=== PATIENT | female | born 1960 | race Caucasian/White ===

== ENCOUNTER 2017-07-05 02:42 | Emergency (ER) | payer MEDICAID ==
[~2017-07-05] VITALS: Ht 167.6 cm; Wt 62.1 kg
[2017-07-05 02:57] VITALS: BP 150/99
[2017-07-05] MEDS ORDERED: IBUPROFEN 600 MG TAB PO ONE (05:00)
== END 2017-07-05 05:10 | disposition home or self-care (01) ==
LOC: ER 02:45
DX: S30.0XXA Contusion of lower back and pelvis, initial encounter (principal); S50.02XA Contusion of left elbow, initial encounter; Z88.6 Allergy status to analgesic agent; W10.8XXA Fall (on) (from) other stairs and steps, initial encounter; Y93.89 Activity, other specified; Y92.89 Other specified places as the place of occurrence of the external cause; Y99.8 Other external cause status
CPT/HCPCS: 72110; 73080

== ENCOUNTER 2017-10-31 22:36 | Inpatient (IN) | payer MEDICAID ==
[~2017-10-31] VITALS: Ht 165.1 cm; Wt 58.6 kg
[2017-10-31 23:21] LABS: Urine Bacteria NONE SEEN /hpf (None Seen); Urine Blood Negative /uL (Negative); Urine Mucus FEW (None Seen); Urine Specific Gravity 1.027 (1.001-1.035); Urine WBC 26 /hpf (0 - 5)
[2017-10-31 23:38] LABS: Basophils # (auto) 0 uL; Monocytes # (auto) 0.5 uL; Neutrophils # (auto) 3.5 uL; Nucleated Red Blood Cells % 0.1 %
[2017-10-31 23:40] LABS: Basophils % (auto) 0.4 % (0.0-2.0); Eosinophils # (auto) 0.3 uL; Eosinophils % (auto) 3.3 % (0.0-7.0); Hemoglobin 12.1 g/dL (12.2-16.2); Lymphocytes # (auto) 3.6 uL; Lymphocytes % (auto) 45.6 % (10.0-50.0); Mean Corpuscular Hemoglobin 25.4 pg (28.0-32.0); Mean Corpuscular Hgb Conc. 31.9 g/dL (32.0-36.0); Mean Corpuscular Volume 79.7 fL (80.0-100.0); Monocytes % (auto) 6.5 % (0.0-12.0); Neutrophils % (auto) 44.2 % (37.0-80.0); Platelet Count (auto) 314 10^3/uL (140-450); Red Blood Cells 4.78 10^6/uL (4.0-5.20); Red Cell Distribution Width 14.2 % (11.8-14.3); White Blood Cell 7.9 10^3/uL (4.4-10.8)
[2017-10-31 23:58] LABS: Albumin 3.6 g/dL (3.4-5.0); BUN/Creatinine Ratio 20.2; Calcium 8.3 mg/dL (8.5-10.1); Potassium 3.8 mmol/L (3.5-5.1)
[2017-11-01 00:01] LABS: Bilirubin, Total 0.2 mg/dL (0.2-1.0)
[2017-11-01] MEDS ORDERED: ONDANSETRON HCL 4 MG/2 ML VIAL IV ONE (04:30)
[2017-11-01] MEDS ORDERED: ONDANSETRON HCL 4 MG/2 ML VIAL ONE (04:30)
[2017-11-01] MEDS ORDERED: cefTRIAXone 1GM/10ml IVPUSH 10 ML IV ONE (04:45)
[2017-11-01] MEDS ORDERED: SODIUM CHLORIDE 0.9% 1,000 ML IV ONE (05:30)
[2017-11-01] MEDS ORDERED: cloNIDine HCL 0.1 MG TAB PO PRN (08:45)
[2017-11-01] MEDS ORDERED: metroNIDAZOLE 500 MG TAB PO ONE (08:45)
[2017-11-01] MEDS ORDERED: MORPHINE SULFATE 4 MG/ML SYR/VIAL IV PRN (09:00)
[2017-11-01] MEDS ORDERED: HYDROcodone-ACET 5/325MG TAB PO PRN (09:00)
[2017-11-01] MEDS ORDERED: TEMAZEPAM 15 MG CAP PO PRN (09:00)
[2017-11-01] MEDS ORDERED: DEXTROSE (50%) 50ML SYRG IV PRN (09:00)
[2017-11-01] MEDS: METOPROLOL SUCCINATE XL 50 MG TAB PO SCH (09:28)
[2017-11-01] MEDS: PANTOPRAZOLE 40 MG TAB PO SCH (09:28)
[2017-11-01] MEDS: FAMOTIDINE 20 MG TAB PO SCH (09:28)
[2017-11-01] MEDS: SODIUM CHLORIDE 0.9% 1,000 ML IV SCH (09:28)
[2017-11-01] MEDS: MULTIPLE VITAMIN TAB PO SCH (09:28)
[2017-11-01] MEDS: PARoxetine 20 MG TAB PO SCH (09:28)
[2017-11-01] MEDS: ACETAMINOPHEN 325 MG TAB PO PRN ×2 (09:48→20:12)
[2017-11-01] MEDS: InsuLIN REG 1unit/0.01ml Soln (100units/ml) SC SCH ×3 (11:30→21:01)
[2017-11-01] MEDS: ACCU-CHEK COMFORT CURVE STRIP VI SCH ×3 (12:00→21:01)
[2017-11-01 12:14] VITALS: BP 124/79
[2017-11-01] MEDS: metroNIDAZOLE 500 MG TAB PO SCH ×2 (15:18→20:59)
[2017-11-01 17:21] VITALS: BP 127/75
[2017-11-01] MEDS ORDERED: PAR20T PO (21:09)
[2017-11-01] MEDS ORDERED: LISI10TA6 PO (21:09)
[2017-11-01] MEDS ORDERED: METF-370 PO (21:09)
[2017-11-01] MEDS ORDERED: METO25TA5 PO (21:09)
[2017-11-01] MEDS ORDERED: OME20T PO (21:09)
[2017-11-02 05:00] VITALS: BP 126/79
[2017-11-02] MEDS: InsuLIN REG 1unit/0.01ml Soln (100units/ml) SC SCH ×4 (06:00→21:37)
[2017-11-02] MEDS: metroNIDAZOLE 500 MG TAB PO SCH ×3 (06:00→21:37)
[2017-11-02] MEDS: ACCU-CHEK COMFORT CURVE STRIP VI SCH ×4 (06:00→21:37)
[2017-11-02 07:01] LABS: Hemoglobin 12.5 g/dL (12.2-16.2)
[2017-11-02 07:04] LABS: Mean Corpuscular Hemoglobin 25.6 pg (28.0-32.0); Mean Corpuscular Hgb Conc. 32.1 g/dL (32.0-36.0); Mean Corpuscular Volume 79.8 fL (80.0-100.0); Platelet Count (auto) 279 10^3/uL (140-450); Red Blood Cells 4.89 10^6/uL (4.0-5.20); Red Cell Distribution Width 14.3 % (11.8-14.3); White Blood Cell 5.3 10^3/uL (4.4-10.8)
[2017-11-02 07:07] LABS: Band Neutrophils % (manual) 0; Basophils % (manual) 0 (0.0-2.0); Blast Cells 0; Metamyelocytes % 0; Myelocytes % 0; Promyelocytes % 0; Reactive Lymphocytes 0
[2017-11-02 07:29] LABS: Albumin 3.3 g/dL (3.4-5.0); BUN/Creatinine Ratio 12.6; Bilirubin, Total 0.3 mg/dL (0.2-1.0); Calcium 8.1 mg/dL (8.5-10.1); Potassium 4.7 mmol/L (3.5-5.1); Total Protein 6.5 g/dL (6.4-8.2)
[2017-11-02] MEDS: SODIUM CHLORIDE 0.9% 1,000 ML IV SCH ×2 (07:59→18:08)
[2017-11-02 08:38] LABS: Eosinophils % (manual) 25 (0-7); Lymphocytes % (manual) 35 (10.0-50.0); Monocytes % (manual) 4 (0-12)
[2017-11-02 08:59] VITALS: BP 109/61
[2017-11-02] MEDS: MULTIPLE VITAMIN TAB PO SCH (10:19)
[2017-11-02] MEDS: cefTRIAXone 1GM/10ml IVPUSH 10 ML IV SCH (10:19)
[2017-11-02] MEDS: FAMOTIDINE 20 MG TAB PO SCH (10:20)
[2017-11-02] MEDS: METOPROLOL SUCCINATE XL 50 MG TAB PO SCH (10:20)
[2017-11-02] MEDS: PARoxetine 20 MG TAB PO SCH (10:20)
[2017-11-02] MEDS: PANTOPRAZOLE 40 MG TAB PO SCH (10:20)
[2017-11-02] MEDS ORDERED: GOLYTELY 4L KIT PO ONE (12:00)
[2017-11-02 13:00] VITALS: BP 123/76
[2017-11-02 17:02] VITALS: BP 120/64
[2017-11-02] MEDS: Boost Glucose Control 8 Ounces PO SCH (18:00)
[2017-11-02] MEDS: ONDANSETRON HCL 4 MG/2 ML VIAL IV PRN (21:37)
[2017-11-02] MEDS: ACETAMINOPHEN 325 MG TAB PO PRN (21:38)
[2017-11-02 22:00] VITALS: BP 155/88
[2017-11-03] MEDS: ONDANSETRON HCL 4 MG/2 ML VIAL IV PRN (03:53)
[2017-11-03] MEDS ORDERED: GOLYTELY 4L KIT PO ONE (04:00)
[2017-11-03 05:00] VITALS: BP 158/90
[2017-11-03] MEDS: metroNIDAZOLE 500 MG TAB PO SCH ×3 (05:24→21:05)
[2017-11-03] MEDS: InsuLIN REG 1unit/0.01ml Soln (100units/ml) SC SCH ×4 (05:29→21:03)
[2017-11-03] MEDS: ACCU-CHEK COMFORT CURVE STRIP VI SCH ×4 (05:29→21:03)
[2017-11-03 06:36] LABS: Basophils # (auto) 0 uL; Basophils % (auto) 0.5 % (0.0-2.0); Eosinophils # (auto) 0.2 uL; White Blood Cell 6.8 10^3/uL (4.4-10.8)
[2017-11-03 06:39] LABS: Eosinophils % (auto) 2.7 % (0.0-7.0); Hematocrit 40.1 % (36.0-46.0); Hemoglobin 12.6 g/dL (12.2-16.2); Lymphocytes # (auto) 2.3 uL; Lymphocytes % (auto) 34.1 % (10.0-50.0); Mean Corpuscular Hgb Conc. 31.5 g/dL (32.0-36.0); Mean Corpuscular Volume 79.4 fL (80.0-100.0); Monocytes # (auto) 0.5 uL; Monocytes % (auto) 6.7 % (0.0-12.0); Neutrophils # (auto) 3.8 uL; Nucleated Red Blood Cells % 0.2 %; Platelet Count (auto) 307 10^3/uL (140-450); Red Blood Cells 5.06 10^6/uL (4.0-5.20)
[2017-11-03 06:53] LABS: BUN/Creatinine Ratio 8.2
[2017-11-03] MEDS: Boost Glucose Control 8 Ounces PO SCH ×3 (08:00→18:24)
[2017-11-03] MEDS ORDERED: diphenhdrAMINE HCL 50 MG/1 ML VL ONE (08:18)
[2017-11-03] MEDS ORDERED: FLUMAZENIL 0.1 MG/ML INJ 10ML MDV IV ONE (08:18)
[2017-11-03] MEDS ORDERED: NALOXONE HCL 0.4 MG/ML VIAL ONE (08:18)
[2017-11-03] MEDS ORDERED: LIDOCAINE VISCOUS 2% 15ML UD ONE (08:18)
[2017-11-03 08:26] VITALS: BP 133/83
[2017-11-03] MEDS: cefTRIAXone 1GM/10ml IVPUSH 10 ML IV SCH (09:01)
[2017-11-03 09:27] LABS: Partial Thromboplastin Time 25.8 sec (22.64-33.71); Prothrombin Time 10.9 sec (9.37-12.3)
[2017-11-03] MEDS: MULTIPLE VITAMIN TAB PO SCH ×2 (09:57→18:24)
[2017-11-03] MEDS: PARoxetine 20 MG TAB PO SCH ×2 (09:58→18:24)
[2017-11-03] MEDS: PANTOPRAZOLE 40 MG TAB PO SCH ×2 (09:58→18:24)
[2017-11-03] MEDS: METOPROLOL SUCCINATE XL 50 MG TAB PO SCH ×2 (09:58→18:24)
[2017-11-03] MEDS: fentaNYL CITRATE 100 MCG/2 ML VL ONE ×3 (10:07→10:18)
[2017-11-03] MEDS: MIDAZOLAM HCL 5 MG/ML-1ML VIAL ONE ×3 (10:07→10:18)
[2017-11-03] MEDS: SODIUM CHLORIDE 0.9% 1,000 ML IV SCH (11:07)
[2017-11-03 13:00] VITALS: BP 148/84
[2017-11-03] MEDS ORDERED: LEVOFLOXACIN 500MG 100 ML IV ONE (15:15)
[2017-11-03] MEDS: ACETAMINOPHEN 325 MG TAB PO PRN (16:57)
[2017-11-03 17:31] VITALS: BP 144/75
[2017-11-03 22:00] VITALS: BP 128/65
[2017-11-04] MEDS: SODIUM CHLORIDE 0.9% 1,000 ML IV SCH (03:28)
[2017-11-04] MEDS: metroNIDAZOLE 500 MG TAB PO SCH (05:26)
[2017-11-04] MEDS: ACCU-CHEK COMFORT CURVE STRIP VI SCH (05:27)
[2017-11-04 05:42] VITALS: BP 141/87
[2017-11-04] MEDS: InsuLIN REG 1unit/0.01ml Soln (100units/ml) SC SCH (05:50)
[2017-11-04 09:00] VITALS: BP 146/92
[2017-11-04] MEDS: Boost Glucose Control 8 Ounces PO SCH (09:17)
[2017-11-04] MEDS ORDERED: LEVOFLOXACIN 500MG 100 ML IV SCH (10:00)
[2017-11-04] MEDS ORDERED: NITR-39 PO (10:47)
[2017-11-04] MEDS ORDERED: PANT40TA2 PO (10:47)
[2017-11-04 11:18] VITALS: BP 144/75
== END 2017-11-04 13:00 | disposition home or self-care (01) | DRG 241 ==
LOC: ER 22:39 → OVERFLOW 22:40 → CENTRAL 11-01 11:50
PROVIDERS: ADMIT Internal Medicine; ATTEND Internal Medicine
PROC: 0DB68ZX Excision of Stomach, Via Natural or Artificial Opening Endoscopic, Diagnostic (ICD-10-PCS; 2017-11-03)
PROC: 0DBE8ZX Excision of Large Intestine, Via Natural or Artificial Opening Endoscopic, Diagnostic (ICD-10-PCS; 2017-11-03)
PROC: 0DB98ZX Excision of Duodenum, Via Natural or Artificial Opening Endoscopic, Diagnostic (ICD-10-PCS; principal; 2017-11-03 10:04)
PROC: 0DB78ZX Excision of Stomach, Pylorus, Via Natural or Artificial Opening Endoscopic, Diagnostic (ICD-10-PCS; 2017-11-03 10:04)
DX: K29.70 Gastritis, unspecified, without bleeding (principal); N17.0 Acute kidney failure with tubular necrosis; K85.90 Acute pancreatitis without necrosis or infection, unspecified; E11.21 Type 2 diabetes mellitus with diabetic nephropathy; N18.3 Chronic kidney disease, stage 3 (moderate); E44.1 Mild protein-calorie malnutrition; N39.0 Urinary tract infection, site not specified; D50.9 Iron deficiency anemia, unspecified; D63.8 Anemia in other chronic diseases classified elsewhere; E11.22 Type 2 diabetes mellitus with diabetic chronic kidney disease; E83.51 Hypocalcemia; E86.0 Dehydration; F32.9 Major depressive disorder, single episode, unspecified; I12.9 Hypertensive chronic kidney disease with stage 1 through stage 4 chronic kidney disease, or unspecified chronic kidney disease; R74.8 Abnormal levels of other serum enzymes; K29.80 Duodenitis without bleeding; I70.8 Atherosclerosis of other arteries; B96.20 Unspecified Escherichia coli [E. coli] as the cause of diseases classified elsewhere; K31.7 Polyp of stomach and duodenum; K64.8 Other hemorrhoids; Z16.12 Extended spectrum beta lactamase (ESBL) resistance; Z90.710 Acquired absence of both cervix and uterus; Z68.21 Body mass index [BMI] 21.0-21.9, adult; Z88.6 Allergy status to analgesic agent; Z79.899 Other long term (current) drug therapy
CPT/HCPCS: 36415; 43239; 45380; 74176; 80048; 80053; 81001; 81025; 82150; 82270; 82705; 82784; 82962; 83036; 83516; 83540; 83690; 84443; 85007; 85025; 85027; 85610; 85730; 86255; 87045; 87086; 87088; 87177; 87186; 87493; 87899; 96374; 96375; J1815; J1956; J2250; J2405

== ENCOUNTER 2023-06-13 16:27 | Emergency (ER) | payer MEDICAID ==
[~2023-06-13] VITALS: Ht 165.1 cm; Wt 56.4 kg
[~2023-06-13 16:27] MED LIST: DICY20TA PO; GABA-1308 PO; HYDR-4833 PO; LISI20TA56 PO; METF-370 PO; METO25TA93 PO; PANT40TA2 PO; PAR20T PO; PROBCAP5 PO
[2023-06-13 16:43] VITALS: BP 125/62; PULSE 82; RESP 18; O2SAT 97
== END 2023-06-13 20:51 | disposition left against medical advice (07) ==
LOC: ER 16:27
DX: M25.571 Pain in right ankle and joints of right foot (principal); Z53.21 Procedure and treatment not carried out due to patient leaving prior to being seen by health care provider
CPT/HCPCS: 73610

== ENCOUNTER 2024-07-01 18:46 | Inpatient (IN) | payer MEDICAID ==
[~2024-07-01] VITALS: Ht 165.1 cm; Wt 55.1 kg
--- NOTE | 2024-07-01 19:10 | ED.PDOC ---
History of Present Illness HPI Comments 64-year-old female history of IBS, diabetes, hypertension and diverticular disease brought in by self complaining of abdominal pain, nausea, vomiting, diarrhea and bright red blood in her stool, onset 4 days ago. Patient states pain is greatest in the left lower quadrant, but also is in the right mid abdominal area and left upper quadrant. She denies any fever, dysuria or sick contacts. Time Seen by MD: 18:55 Primary Care Provider: SHERI Buck Notes: Nurses Notes, Medications, Allergies Allergies: Coded Allergies: Tramadol (Verified Allergy, Severe, RASH, 09/09/15) Levofloxacin (Verified Allergy, Intermediate, hives, 11/03/17) Home Meds Reported Medications Probiotic Product (Restora) Cap, 1 CAP PO DAILY, CAP 12/04/18 Lisinopril (Lisinopril) 20 Mg Tab, 10 MG PO BID, TAB 12/04/18 Dicyclomine Hcl (Dicyclomine Hcl) 20 Mg Tab, 10 MG PO BID, TAB 12/04/18 Pantoprazole Sodium Sesquihydr (Protonix) 40 Mg Tab, 40 MG PO DAILY, #30 TAB 12/04/18 Metoprolol Succinate (Metoprolol Succinate Er) 25 Mg Tab, 1 TAB PO DAILY, #30 TAB 5 Refills 12/04/18 Paroxetine (PAXIL TABLET) 20 Mg Tb, 1 TAB PO DAILY, #30 TAB 5 Refills 12/04/18 Metformin Hydrochloride (Metformin Hcl) 500 Mg Tab, 500 MG PO DAILY, TAB 12/04/18 Gabapentin (Gabapentin) 100 Mg Cap, 1 CAP PO TID, #90 CAP 2 Refills 12/04/18 Hydrocodone-Acetaminophen (Modena 5/325MG) 1 Tab Tb, 1 TAB PO BID PRN for pain, #60 TAB 12/04/18 Information Source: Patient Mode of Arrival: Ambulatory Severity: Moderate Timing: Days Duration: Since onset, Days Prehospital treatment: None Past Medical History PAST MEDICAL HISTORY: DM, HTN Past Medical History (Other): Irretible bowel syndrome, Diverticulitis Surgical History: Hysterectomy Surgical History (Other): Ectopic Sx X2, Bladder repair [employer] History: Endometriosis Family History Family History: Reviewed,noncontributory to illness, Unknown Social History Smoker: Non-Smoker Alcohol: Denies ETOH Use Drugs: Denies Drug Use Lives In: Home Constitutional: denies: chills, diaphoresis, fatigue, fever, malaise, sweats, weakness, others EENTM: denies: blurred vision, double vision, ear bleeding, ear discharge, ear drainage, ear pain, ear ringing, eye pain, eye redness, hearing loss, mouth pain, mouth swelling, nasal discharge, nose bleeding, nose congestion, nose courtney n, photophobia, tearing, throat pain, throat swelling, voice changes, others Respiratory: denies: cough, hemoptysis, orthopnea, SOB at rest, shortness of breath, SOB with excertion, stridor, wheezing, others Cardiovascular: denies: chest pain, dizzy spells, diaphoresis, Dyspnea on exertion, edema, irregular heart beat, left arm pain, lightheadedness, palpitations, PND, syncope, others Gastrointestinal: reports: abdominal pain, diarrhea, nausea, vomiting; denies: abdomen distended, blood streaked bowels, constipated, dysphagia, difficulty swallowing, hematemesis, melena, poor appetite, poor fluid intake, rectal bleeding, rectal pain, others Genitourinary: denies: abnormal vagina bleeding, burning, dyspareunia, dysuria, flank pain, frequency, hematuria, incontinence, pain, , vagina discharge, urgency, others Neurological: reports: dizziness, headache; denies: fainting, left sided numbness, left sided weakness, numbness, paresthesia, pre-existing deficit, right sided numbness, right sided weakness, seizure, speech problems, tingling, tremors, weakness, others Musculoskeletal: denies: back pain, gout, joint pain, joint swelling, muscle pain, muscle stiffness, neck pain, others Integumetry: denies: bruises, change in color, change in hair/nails, dryness, laceration, lesions, lumps, rash, wounds, others Allergic/Immunocompromised: denies: Difficulty Healing, Frequent Infections, Hives, Itching, others Hematologic/Lymphatic: denies: anemia, blood clots, easy bleeding, easy bruising, swollen glands, others Endocrine: denies: excessive hunger, excessive sweating, excessive thirst, excessive urination, flushing, intolerance to cold, intolerance to heat, unexplained weight gain, unexplained weight loss, others Psychiatric: denies: anxiety, bipolar disorder, depression, hopeless, panic disorder, schizophrenia, sleepless, suicidal, others All Other Systems: Reviewed and Negative Physical Exam General Appearance: No Apparent Distress, Normal HEENT: Normal ENT Inspection Neck: Full Range of Motion, Normal Inspection Respiratory: Lungs Clear, No Accessory Muscle Use, No Respiratory Distress, Normal Breath Sounds Cardiovascular: No Edema, No JVD, Regular Rate/Rhythm Breast Exam: Deferred Gastrointestinal: LLQ, LUQ, RUQ, Soft, Tenderness Genitalia: Deferred Pelvic: Deferred Rectal: Deferred Extremities: Normal inspection, Normal range of motion, Non-tender, No pedal edema Neurologic: Alert, No Motor Deficits, Normal Affect, Normal Mood, No Sensory Deficits Cerebellar Function: NOT DONE Reflexes: NOT DONE Skin: Dry, Normal Color, Warm Lymphatic: NOT DONE Was a procedure done? Was a procedure done?: No Differential Dx Considerations may include: Exacerbation of IBS, diverticulitis, colitis, UTI, enteritis, electrolyte imbala nce, hypovolemia, among others X-Ray, Labs, Meds, VS Vital Signs Date Time Temp Pulse Resp B/P (MAP) Pulse Ox O2 Delivery O2 Flow Rate FiO2 07/01/24 19:26 98.1 87 16 116/74 (88) 94 Lab Test 07/01/24 20:01 07/01/24 19:09 Range/Units White Blood Count 6.3 4.4-10.8 10^3/uL Red Blood Count 5.12 4.0-5.20 10^6/uL Hemoglobin 13.5 12.2-16.2 g/dL Hematocrit 41.5 36.0-46.0 % Mean Corpuscular Volume 81.1 80.0-100.0 fL Mean Corpuscular Hemoglobin 26.3 L 28.0-32.0 pg Mean Corpuscular Hemoglobin Concent 32.4 32.0-36.0 g/dL Red Cell Distribution Width 14.8 H 11.8-14.3 % Platelet Count 307 140-450 10^3/uL Mean Platelet Volume 7.2 6.9-10.8 fL Neutrophils (%) (Auto) 47.5 37.0-80.0 % Lymphocytes (%) (Auto) 40.3 10.0-50.0 % Monocytes (%) (Auto) 7.6 0.0-12.0 % Eosinophils (%) (Auto) 3.9 0.0-7.0 % Basophils (%) (Auto) 0.7 0.0-2.0 % Neutrophils # (Auto) 3.0 1.6-8.6 10 ^3/uL Lymphocytes # (Auto) 2.5 0.4-5.4 10 ^3/uL Monocytes # (Auto) 0.5 0-1.3 10 ^3/uL Eosinophils # (Auto) 0.2 0-0.8 10 ^3/uL Basophils # (Auto) 0 0-0.2 10 ^3/uL Nucleated Red Blood Cells 0.0 % Sodium Level 141 136-145 mmol/L Potassium Level 3.8 3.5-5.1 mmol/L Chloride Level 103 98-107 mmol/L Carbon Dioxide Level 29 20-31 mmol/L Anion Gap 9 5-15 Blood Urea Nitrogen 21 9-23 mg/dL Creatinine 1.26 H 0.550-1.02 mg/dL Glomerular Filtration Rate Calc 48 >90 mL/min BUN/Creatinine Ratio 16.7 10.0-20.0 Serum Glucose 110 H 74-106 mg/dL Lactic Acid Level 1.6 0.4-2.0 mmol/L Calcium Level 10.3 8.7-10.4 mg/dL Total Bilirubin 0.4 0.2-1.0 mg/dL Aspartate Amino Transferase (AST) 14 13-40 U/L Alanine Aminotransferase (ALT) 15 7-40 U/L Alkaline Phosphatase 71 46-116 U/L Troponin I High Sensitivity < 3 L </=34 ng/L Total Protein 7.1 5.7-8.2 g/dL Albumin 4.4 3.2-4.8 g/dL Urine Color Light-yellow Yellow Urine Clarity Clear Clear Urine pH 5.5 5.0-9.0 Urine Specific [place] 1.029 1.001-1.035 Urine Protein Negative Negative Urine Ketones Negative Negative Urine Blood Negative Negative /uL Urine Nitrite Negative Negative Urine Bilirubin Negative Negative Urine Urobilinogen 2 H Negative mg/dL Urine Leukocyte Esterase 3+ Negative /uL Urine RBC 7 0 - 4 /hpf Urine WBC 64 0 - 5 /hpf Urine Squamous Epithelial Cells Few <5 /hpf Urine Bacteria Few H None Seen /hpf Urine Glucose Normal Normal mg/dL PROCEDURE(s): ABPL - CT AB PEL WO CON-NO ORAL OR IV REASON: n/v/d, rectal bleeding, abd kaminski ORDER NUMBER(s): [id number], ACCESSION NUMBER(s): [id number] Exam: CT CT AB PEL WO CON-NO ORAL OR IV History: n/v/d, rectal bleeding, abd kaminski Comparison Study: None available at time of dictation. TECHNIQUE: Multidetector CT of the abdomen was performed from lung bases to pubic symphysis. Imaging was performed without IV contrast. Axial, coronal and sagittal multiplanar reformats were obtained from the axial data set by the technologist. Radiation Dose Information: CT Dose: CTDI volume is 5.09 mGy. Dose-length product is 254.99 mGy*cm FINDINGS: Evaluation of solid organs is limited due to lack of intravenous contrast use. Findings: Lung Bases: No acute or significant lung base finding. Normal heart size. No pleural or pericardial effusion. Liver: The liver is normal in size. No focal lesions. Gallbladder and Biliary Tree: Unremarkable Spleen: Unremarkable Pancreas: The pancreas is grossly normal in appearance. Adrenal Glands: Unremarkable Kidneys: Kidneys are grossly normal without calculi or hydronephrosis. Bladder: Grossly unremarkable for degree of distention. Bowel: The stomach is grossly normal in appearance. Small bowel and colon are normal in caliber and distribution. The appendix is not visualized; however, no secondary findings of acute appendicitis identified. Ascites: Absent Lymphadenopathy: No mesenteric, retroperitoneal or periportal lymphadenopathy. Abdominal Wall and Mesentery: Unremarkable. Vasculature: The visualized abdominal aorta is normal in size and caliber. Evaluation of abdominal and pelvic vessels is limited due to lack of intravenous contrast. Pelvic Organs: Unremarkable Musculoskeletal: No aggressive focal bony lesions, acute fractures or dislocation. Soft tissues: Unremarkable IMPRESSION: 1. No acute abdominal or pelvic finding. Radiation optimization: All CT scans at this facility use at least one of these dose optimization techniques: automated exposure control mA and/or kV adjustment per patient size (includes targeted exams where dose is matched to clinical indication) or iterative reconstruction. X-Ray, Labs, Meds, VS Comment 64-year-old female with a history of IBS, hypertension, diabetes and diverticular disease complaining of abdominal pain, nausea, vomiting, diarrhea and bright red blood in her stools. Vitals remarkable for oxygen saturation 94% on room air Exam remarkable for left lower quadrant, left upper quadrant and right upper quadrant tenderness to palpation CT abdomen and pelvis unremarkable CBC unremarkable, CMP remarkable for creatinine 1.26, lactate normal, troponin negative UA abnormal consistent with UTI Patient treated with the following in the ED: 1 L 0.9 normal saline IV bolus, morphine 2 mg IV, Zofran 4 mg IV, Protonix 40 mg IV, Rocephin 1 g IV On re-evaluation, patient states pain has improved. Vitals were stable, and patient denies acute bleeding. Plan is to admit the patient for IV antibiotics and GI evaluation. Time of 1ST Reevaluation: 19:25 Reevaluation 1ST: Unchanged Patient Education/Counseling: Diagnosis, Treatment, Prognosis Family Education/Counseling: No Family Present Additional Information - I reviewed the following notes from patient's past medical encounters: 12/04/18 12/07/18 - The following tests were ordered, and results were reviewed by me: Labs, CT, PHA - I reviewed and agreed with the following test results read by other provider: CT - I discussed treatments and results with medical personnel and: (consultants, family) Departure 1 Departure Time of Disposition: 22:16 Impression: Primary Impression: UTI (urinary tract infection) Qualified Codes: N39.0 - Urinary tract infection, site not specified Additional Impressions: IBS (irritable bowel syndrome) Qualified Codes: K58.0 - Irritable bowel syndrome with diarrhea Hematochezia Nausea vomiting and diarrhea Disposition: ADMITTED INPATIENT Admit to: Med Surg Condition: Fair Critical Care Note Critical Care Time?: No Stability Stability form required: No Heart Score Heart Score: Heart Score Response (Comments) Value History N/A 0 EKG N/A 0 Age N/A 0 Risk Factors N/A 0 Troponin N/A 0 Total 0 I personally scribed for SABRINA BENITEZ MD ([email or web address]) on 07/01/24 at 19:10. Electronically submitted by Stanislav Stover ([email or web address]). SABRINA BENITEZ MD Jul 01, 2024 19:10
[2024-07-01 19:44] LABS: Urine Bacteria FEW /hpf (None Seen); Urine Blood Negative /uL (Negative); Urine Clarity Clear (Clear); Urine Color Light-Yellow (Yellow); Urine Protein, UAD Negative (Negative); Urine Specific Gravity 1.029 (1.001-1.035); Urine Urobilinogen 2 mg/dL (Negative); Urine WBC 64 /hpf (0 - 5); Urine pH 5.5 (5.0-9.0)
--- NOTE | 2024-07-01 19:44 | DVH ---
Exam: CT CT AB PEL WO CON-NO ORAL OR IV History: n/v/d, rectal bleeding, abd kaminski Comparison Study: None available at time of dictation. TECHNIQUE: Multidetector CT of the abdomen was performed from lung bases to pubic symphysis. Imaging was performed without IV contrast. Axial, coronal and sagittal multiplanar reformats were obtained fr om the axial data set by the technologist. Radiation Dose Information: CT Dose: CTDI volume is 5.09 mGy. Dose-length product is 254.99 mGy*cm FINDINGS: Evaluation of solid organs is limited due to lack of intravenous contrast use. Findings: Lung Bases: No acute or significant lung base finding. Normal heart size. No pleural or pericardial effusion. Liver: The liver is normal in size. No focal lesions. Gallbladder and Biliary Tree: Unremarkable Spleen: Unremarkable Pancreas: The pancreas is grossly normal in appearance. Adrenal Glands: Unremarkable Kidneys: Kidneys are grossly normal without calculi or hydronephrosis. Bladder: Grossly unremarkable for degree of distention. Bowel: The stomach is grossly normal in appearance. Small bowel and colon are normal in caliber and d istribution. The appendix is not visualized; however, no secondary findings of acute appendicitis id entified. Ascites: Absent Lymphadenopathy: No mesenteric, retroperitoneal or periportal lymphadenopathy. Abdominal Wall and Mesentery: Unremarkable. Vasculature: The visualized abdominal aorta is normal in size and caliber. Evaluation of abdominal a nd pelvic vessels is limited due to lack of intravenous contrast. Pelvic Organs: Unremarkable Musculoskeletal: No aggressive focal bony lesions, acute fractures or dislocation. Soft tissues: Unremarkable IMPRESSION: 1. No acute abdominal or pelvic finding. Radiation optimization: All CT scans at this facility use at least one of these dose optimization jenna hniques: automated exposure control mA and/or kV adjustment per patient size (includes targeted exam s where dose is matched to clinical indication) or iterative reconstruction.
[2024-07-01 20:25] LABS: Basophils # (auto) 0 10 ^3/uL (0-0.2); Lymphocytes # (auto) 2.5 10 ^3/uL (0.4-5.4); Monocytes # (auto) 0.5 10 ^3/uL (0-1.3)
[2024-07-01 20:27] LABS: Basophils % (auto) 0.7 % (0.0-2.0); Eosinophils # (auto) 0.2 10 ^3/uL (0-0.8); Eosinophils % (auto) 3.9 % (0.0-7.0); Hematocrit 41.5 % (36.0-46.0); Hemoglobin 13.5 g/dL (12.2-16.2); Lymphocytes % (auto) 40.3 % (10.0-50.0); Mean Corpuscular Hemoglobin 26.3 pg (28.0-32.0); Mean Corpuscular Hgb Conc. 32.4 g/dL (32.0-36.0); Mean Corpuscular Volume 81.1 fL (80.0-100.0); Monocytes % (auto) 7.6 % (0.0-12.0); Neutrophils % (auto) 47.5 % (37.0-80.0); Platelet Count (auto) 307 10^3/uL (140-450); Red Blood Cells 5.12 10^6/uL (4.0-5.20); Red Cell Distribution Width 14.8 % (11.8-14.3); White Blood Cell 6.3 10^3/uL (4.4-10.8)
[2024-07-01 20:44] LABS: Alanine Aminotransferase 15 U/L (7-40); Albumin 4.4 g/dL (3.2-4.8); Alkaline Phosphatase 71 U/L (46-116); Anion Gap 9 (5-15); Aspartate Aminotransferase 14 U/L (13-40); BUN/Creatinine Ratio 16.7 (10.0-20.0); Bilirubin, Total 0.4 mg/dL (0.2-1.0); Blood Urea Nitrogen 21 mg/dL (9-23); Calcium 10.3 mg/dL (8.7-10.4); Carbon Dioxide 29 mmol/L (20-31); Chloride 103 mmol/L (98-107); Potassium 3.8 mmol/L (3.5-5.1); Sodium 141 mmol/L (136-145); Total Protein 7.1 g/dL (5.7-8.2)
[2024-07-01 20:47] LABS: Glucose 110 mg/dL (74-106)
[2024-07-01] MEDS ORDERED: DOCUSATE SOD 100 MG CAP PO PRN (22:15)
[2024-07-01] MEDS ORDERED: cefTRIAXone 1GM/50ML D5W 50 ML IV ONE (22:15)
[2024-07-01] MEDS ORDERED: NITROGLYCERIN 0.4 MG SL TAB SL PRN (22:15)
[2024-07-01] MEDS ORDERED: MORPHINE SULFATE INJ 2 MG/ml SYRG IV PRN ×2 (22:15)
[2024-07-01] MEDS ORDERED: ONDANSETRON HCL 4 MG/2 ML VIAL IV PRN (22:15)
--- NOTE | 2024-07-02 01:06 | DVHHPRES ---
History of Present Illness Resident Creating Document: RIMA CACERES RESIDENT History of Present Illness Patient is 64 years old female with past medical history of hypertension, diabetes mellitus type 2, irritable bowel syndrome, diverticulosis came with a complaint of abdominal pain with nausea and vomiting. As per patient patient has been having stomach pain started Tuesday night in the lower abdomen especially in the left lower quadrant, crampy in nature, 9/10 initially, cramping or burning in nature, no radiation, aggravated with walking. Patient reported having diarrhea 3 to 4 times a day, watery, no blood. Patient also endorsed nausea and vomiting started on Tuesday night, vomiting was mostly watery and greenish fluid, no blood. Patient also endorsed 1 tab bleeding per rectum on night but not after that. On further discussion patient also reported having dysuria started on Tuesday. Patient denied any chest pain or shortness of breath, acute joint pain or swelling, dysarthria change in vision. Initial lab workup revealed serum creatinine 1.26, other initial blood workup including WBC, hemoglobin, sodium, potassium, lactic acid, lipase, troponin I was within normal limit.. Urinalysis revealed UTI with leukocyte esterase 3+, WBC 64, RBC 7, few bacteria in urine. CT abdomen pelvis revealed- No acute abdominal or pelvic finding. Past Medical History hypertension, diabetes mellitus type 2, irritable bowel syndrome, diverticulosis Past Surgical History Ectopic x2, bladder repair, history of endometrial surgery Past Social History Denies smoking/alcoholism or drug abuse, lives with grandson at home Review of Systems Review of Systems Allergy- levofloxacin, tramadol Patient was seen today at the bedside. Cardiovascular- deny acute chest pain or shortness of breath or cough or palpitation Respiratory- denies cough or short of breath or wheezing Musculoskeletal-denies acute joint swelling or tenderness or redness Neurological- denies acute dysarthria, dysphagia, change in vision Psychiatry- denies depression or SI or HI Skin- denies acute rash or purpura Allergies: Coded Allergies: Tramadol (Verified Allergy, Severe, RASH, 09/09/15) Levofloxacin (Verified Allergy, Intermediate, hives, 11/03/17) Medications Current Medications Medications Dose Ordered Sig/[place] Route Start Time Stop Time Status Last Admin Dose Admin Sodium Chloride 10 ml Q8HR IV 07/02/24 06:00 Ondansetron HCl 4 mg Q4HP PRN IV 07/01/24 22:15 Docusate Sodium 100 mg BIDPRN PRN PO 07/01/24 22:15 Acetaminophen 650 mg Q6HP PRN PO 07/01/24 22:15 Morphine Sulfate 2 mg Q4HPRN PRN IV 07/01/24 22:15 Nitroglycerin 0.4 mg Q5MINP PRN SL 07/01/24 22:15 Morphine Sulfate 2 mg Q30M PRN IV 07/01/24 22:15 Exam Vital Signs Vital Signs Date Time Temp Pulse Resp B/P (MAP) Pulse Ox O2 Delivery O2 Flow Rate FiO2 07/01/24 19:26 98.1 87 16 116/74 (88) 94 Exam General examination- patient is awake, alert, oriented, conversant HEENT- PEERLA, no acute nasal discharge Cardiovascular- S1-S2 audible, rate and rhythm regular, no murmur Respiratory- CTAB, no wheeze or rhonchi Gastrointestinal-tenderness+, bowel sound+. Nondistended Musculoskeletal-no acute joint swelling or tenderness or redness# Lower extremity- no leg edema Neurological- cranial nerves intact, no acute dysarthria or dysphagia Psychiatry- denies depression or SI or HI Skin- no acute rash or purpura Labs/Xrays Labs Test 07/02/24 00:27 07/01/24 20:01 07/01/24 19:09 Range/Units White Blood Count 6.3 4.4-10.8 10^3/uL Red Blood Count 5.12 4.0-5.20 10^6/uL Hemoglobin 13.5 12.2-16.2 g/dL Hematocrit 41.5 36.0-46.0 % Mean Corpuscular Volume 81.1 80.0-100.0 fL Mean Corpuscular Hemoglobin 26.3 L 28.0-32.0 pg Mean Corpuscular Hemoglobin Concent 32.4 32.0-36.0 g/dL Red Cell Distribution Width 14.8 H 11.8-14.3 % Platelet Count 307 140-450 10^3/uL Mean Platelet Volume 7.2 6.9-10.8 fL Neutrophils (%) (Auto) 47.5 37.0-80.0 % Lymphocytes (%) (Auto) 40.3 10.0-50.0 % Monocytes (%) (Auto) 7.6 0.0-12.0 % Eosinophils (%) (Auto) 3.9 0.0-7.0 % Basophils (%) (Auto) 0.7 0.0-2.0 % Neutrophils # (Auto) 3.0 1.6-8.6 10 ^3/uL Lymphocytes # (Auto) 2.5 0.4-5.4 10 ^3/uL Monocytes # (Auto) 0.5 0-1.3 10 ^3/uL Eosinophils # (Auto) 0.2 0-0.8 10 ^3/uL Basophils # (Auto) 0 0-0.2 10 ^3/uL Nucleated Red Blood Cells 0.0 % Sodium Level 141 136-145 mmol/L Potassium Level 3.8 3.5-5.1 mmol/L Chloride Level 103 98-107 mmol/L Carbon Dioxide Level 29 20-31 mmol/L Anion Gap 9 5-15 Blood Urea Nitrogen 21 9-23 mg/dL Creatinine 1.26 H 0.550-1.02 mg/dL Glomerular Filtration Rate Calc 48 >90 mL/min BUN/Creatinine Ratio 16.7 10.0-20.0 Serum Glucose 110 H 74-106 mg/dL Lactic Acid Level 1.6 0.4-2.0 mmol/L Calcium Level 10.3 8.7-10.4 mg/dL Total Bilirubin 0.4 0.2-1.0 mg/dL Aspartate Amino Transferase (AST) 14 13-40 U/L Alanine Aminotransferase (ALT) 15 7-40 U/L Alkaline Phosphatase 71 46-116 U/L Total Protein 7.1 5.7-8.2 g/dL Albumin 4.4 3.2-4.8 g/dL Lipase 46 12-53 U/L Urine Color Light-yellow Yellow Urine Clarity Clear Clear Urine pH 5.5 5.0-9.0 Urine Specific [place] 1.029 1.001-1.035 Urine Protein Negative Negative Urine Ketones Negative Negative Urine Blood Negative Negative /uL Urine Nitrite Negative Negative Urine Bilirubin Negative Negative Urine Urobilinogen 2 H Negative mg/dL Urine Leukocyte Esterase 3+ Negative /uL Urine RBC 7 0 - 4 /hpf Urine WBC 64 0 - 5 /hpf Urine Squamous Epithelial Cells Few <5 /hpf Urine Bacteria Few H None Seen /hpf Urine Glucose Normal Normal mg/dL Assessment/Plan Assessment/Plan # acute abdominal pain with nausea and vomiting likely due to colitis/gastroenteritis - CT abdomen pelvis revealed- No acute abdominal or pelvic finding. -continue ceftriaxone 1 g IV daily -uterine metronidazole 500 mg IV t.i.d. -continue IV fluid as prescribed Pending stool culture and ova and parasite exam -continue IV fluid as prescribed # UTI -leukocyte esterase 3+, WBC 64, RBC 7, few bacteria in urine -continue ceftriaxone 1 g IV daily -pending urine CS -continue IV fluid as prescribed # KATHRYN likely due to VMN -continue IV fluid as prescribed -monitor CMP # intractable nausea and vomiting -continue Zofran as prescribed # hypertension -IV hydralazine q.6h p.r.n. as prescribed # diabetes mellitus type 2 -[id number]-3.2 -insulin sliding scale as prescribed # irritable bowel syndrome -monitor clinically # diverticulosis -continue current management, avoid constipation Goals of care/advance care planning; FULL CODE; discussed with the patient >15 minutes PUD prophylaxis: Famotidine DVT prophylaxis: Patient ambulating Plan discussed with Dr. Galaviz, nursing staff, patient Total time spent on patient evaluation, chart review, assessment and plan, discussion discussion >30 minutes Plan discussed with: Patient Plan discussed with: Patient, Other (RN) My Orders Orders - RIMA CACERES RESIDENT Procedure Category Date Status Time Admit ADMIT 07/01/24 Transmitted 22:09 Code Status CODE 07/01/24 Transmitted 22:09 Sodium Chloride Lock PHA 07/02/24 In Process (Saline Lock Ns) 06:00 Ondansetron Hcl PHA 07/01/24 In Process (Zofran) 22:15 Docusate Sodium PHA 07/01/24 In Process Capsule (Colace 22:15 Complete Blood Count LAB 07/02/24 Logged 04:00 Comprehensive LAB 07/02/24 Logged Metabolic Panel 04:00 Cardiac DIET 07/02/24 Transmitted Diet-2gna,Lofat,Lochol Breakfast Acetaminophen Tablet PHA 07/01/24 In Process (Tylenol Tablet) 22:15 Morphine Sulfate PHA 07/01/24 In Process Injection 22:15 Nitroglycerin PHA 07/01/24 In Process Sublingual (Ntrostat 22:15 Morphine Sulfate PHA 07/01/24 In Process Injection 22:15 Oxygen By Nasal RT 07/01/24 Transmitted Cannula 22:09 Stat Ekg For Chest RUKHSANA 07/01/24 In Process Pain 22:09 Notify Of Changes [facility] 07/01/24 In Process From Base 22:09 Cobol Engineer For [facility] 07/01/24 In Process 24 Hours 22:09 Emergency Dysrhythmia [facility] 07/01/24 In Process Protocol 22:09 Rhythm Strips Once [facility] 07/01/24 In Process Every Shift 22:09 Urine Bacterial SKYLA 07/01/24 In Process Culture 22:12 Date of Service: Jul 01, 2024 Billing Provider: CELESTE GALAVIZ MD Common Visit Codes: 79257-PWHDVXR INP/OBS CARE (HIGH) Secondary Visit Codes: 75104-[id number] CARE PLAN 30 MINUTES RIMA CACERES RESIDENT Jul 02, 2024 01:06 CELESTE GALAVIZ MD Jul 02, 2024 19:16
[2024-07-02] MEDS ORDERED: DEXTROSE (50%) 50ML SYRG IV PRN (01:15)
[2024-07-02] MEDS ORDERED: hydrALAZINE HCL 20 MG/ML VL IV PRN (01:15)
[2024-07-02] MEDS: SODIUM CHLORIDE 0.9% 2,000 ML IV ONE (03:13)
[2024-07-02 03:30] LABS: Basophils # (auto) 0.1 10 ^3/uL (0-0.2); Lymphocytes # (auto) 2.8 10 ^3/uL (0.4-5.4); Monocytes # (auto) 0.5 10 ^3/uL (0-1.3); Red Cell Distribution Width 14.8 % (11.8-14.3)
[2024-07-02 03:33] LABS: Eosinophils # (auto) 0.2 10 ^3/uL (0-0.8); Eosinophils % (auto) 3.5 % (0.0-7.0); Hematocrit 41.8 % (36.0-46.0); Hemoglobin 13.4 g/dL (12.2-16.2); Lymphocytes % (auto) 42.6 % (10.0-50.0); Mean Corpuscular Hgb Conc. 32.1 g/dL (32.0-36.0); Monocytes % (auto) 7.9 % (0.0-12.0); Neutrophils # (auto) 2.9 10 ^3/uL (1.6-8.6); Platelet Count (auto) 328 10^3/uL (140-450); Red Blood Cells 5.15 10^6/uL (4.0-5.20); White Blood Cell 6.5 10^3/uL (4.4-10.8)
[2024-07-02 03:49] LABS: Alanine Aminotransferase 17 U/L (7-40); Albumin 4.7 g/dL (3.2-4.8); Alkaline Phosphatase 71 U/L (46-116); Anion Gap 10 (5-15); Aspartate Aminotransferase 17 U/L (13-40); BUN/Creatinine Ratio 16.4 (10.0-20.0); Bilirubin, Total 0.7 mg/dL (0.2-1.0); Blood Urea Nitrogen 18 mg/dL (9-23); Calcium 10.6 mg/dL (8.7-10.4); Carbon Dioxide 27 mmol/L (20-31); Chloride 103 mmol/L (98-107); Glucose 131 mg/dL (74-106); Magnesium 1.7 mg/dL (1.6-2.6); Potassium 3.8 mmol/L (3.5-5.1); Sodium 140 mmol/L (136-145); Total Protein 7.4 g/dL (5.7-8.2)
[2024-07-02] MEDS: ONDANSETRON HCL 4 MG/2 ML VIAL IV ONE (04:05)
[2024-07-02] MEDS: MORPHINE SULFATE INJ 2 MG/ml SYRG IV ONE (04:11)
[2024-07-02] MEDS: PANTOPRAZOLE 40 MG/10 ML VIAL INJ IV ONE (04:25)
[2024-07-02] MEDS: cefTRIAXone 1GM/50ML D5W 50 ML IV ONE ×2 (04:26→04:36)
[2024-07-02] MEDS: metroNIDAZOLE 500MG/100ML 100 ML IV ONE (04:46)
[2024-07-02] MEDS: SODIUM CHLORIDE 0.9% 1,000 ML IV SCH (04:46)
[2024-07-02] MEDS: SODIUM CHLOR 0.9% PF (SALINE LOCK) 10ML VIAL/SYR IV SCH (06:07)
[2024-07-02] MEDS ORDERED: InsuLIN REG 1unit/0.01ml Soln (100units/ml) SC SCH (07:00)
[2024-07-02] MEDS: ACCU-CHEK COMFORT CURVE STRIP VI SCH (07:22)
[2024-07-02 08:06] VITALS: PULSE 74; RESP 15; TEMP 97.9; O2SAT 98
--- NOTE | 2024-07-02 08:37 | DVH ---
EXAM: XY CHEST XRAY 1 VIEW Indication: SOB, Rule out pneumonia Technique: Single frontal view of the chest was obtained Comparison: None FINDINGS: Lines and Tubes: None Lungs: No focal consolidation. Pleura: No effusion. No pneumothorax. Cardiomediastinal contours: Unremarkable Bones: No acute osseous abnormality. IMPRESSION: No acute cardiopulmonary disease.
[2024-07-02] MEDS: PARoxetine 20 MG TAB PO SCH (10:31)
[2024-07-02] MEDS: FAMOTIDINE (10MG/ML) 2ML VL IV SCH (10:31)
[2024-07-02] MEDS: LISINOPRIL 20 MG TAB PO SCH (10:32)
[2024-07-02] MEDS: ACETAMINOPHEN 325 MG TAB PO PRN (10:32)
[2024-07-02] MEDS: METOPROLOL SUCCINATE XL 50 MG TAB PO SCH (10:32)
[2024-07-02 10:33] VITALS: BP 155/70
[2024-07-02] MEDS ORDERED: metroNIDAZOLE 500MG/100ML 100 ML IV SCH (11:00)
--- NOTE | 2024-07-02 15:55 | DVHDSRES ---
Discharge Summary Date of Admission Resident Creating Document: ARIADNA HOSKINS RESIDENT Jul 01, 2024 at 22:09 Date of Discharge: Jul 02, 2024 Admitting Diagnosis Abdominal pain Labs/Diagnostic Data: Laboratory Results Test 07/02/24 07:21 07/02/24 05:50 07/02/24 03:20 07/01/24 20:01 POC Glucose 115 mg/dl (70-106) Troponin I High Sensitivity 3 ng/L (</=34) White Blood Count 6.5 10^3/uL (4.4-10.8) Red Blood Count 5.15 10^6/uL (4.0-5.20) Hemoglobin 13.4 g/dL (12.2-16.2) Hematocrit 41.8 % (36.0-46.0) Mean Corpuscular Volume 81.0 fL (80.0-100.0) Mean Corpuscular Hemoglobin 26.0 pg (28.0-32.0) Mean Corpuscular Hemoglobin Concent 32.1 g/dL (32.0-36.0) Red Cell Distribution Width 14.8 % (11.8-14.3) Platelet Count 328 10^3/uL (140-450) Mean Platelet Volume 7.1 fL (6.9-10.8) Neutrophils (%) (Auto) 45.0 % (37.0-80.0) Lymphocytes (%) (Auto) 42.6 % (10.0-50.0) Monocytes (%) (Auto) 7.9 % (0.0-12.0) Eosinophils (%) (Auto) 3.5 % (0.0-7.0) Basophils (%) (Auto) 1.0 % (0.0-2.0) Neutrophils # (Auto) 2.9 10 ^3/uL (1.6-8.6) Lymphocytes # (Auto) 2.8 10 ^3/uL (0.4-5.4) Monocytes # (Auto) 0.5 10 ^3/uL (0-1.3) Eosinophils # (Auto) 0.2 10 ^3/uL (0-0.8) Basophils # (Auto) 0.1 10 ^3/uL (0-0.2) Nucleated Red Blood Cells 0.0 % Sodium Level 140 mmol/L (136-145) Potassium Level 3.8 mmol/L (3.5-5.1) Chloride Level 103 mmol/L (98-107) Carbon Dioxide Level 27 mmol/L (20-31) Anion Gap 10 (5-15) Blood Urea Nitrogen 18 mg/dL (9-23) Creatinine 1.10 mg/dL (0.550-1.02) Glomerular Filtration Rate Calc 56 mL/min (>90) BUN/Creatinine Ratio 16.4 (10.0-20.0) Serum Glucose 131 mg/dL (74-106) Hemoglobin A1c 6.2 % A1C (<5.7) Calcium Level 10.6 mg/dL (8.7-10.4) Magnesium Level 1.7 mg/dL (1.6-2.6) Total Bilirubin 0.7 mg/dL (0.2-1.0) Aspartate Amino Transferase (AST) 17 U/L (13-40) Alanine Aminotransferase (ALT) 17 U/L (7-40) Alkaline Phosphatase 71 U/L (46-116) Total Protein 7.4 g/dL (5.7-8.2) Albumin 4.7 g/dL (3.2-4.8) Thyroid Stimulating Hormone (TSH) 2.70 uIU/mL (0.55-4.78) Lactic Acid Level 1.6 mmol/L (0.4-2.0) Lipase 46 U/L (12-53) Test 07/01/24 19:09 Urine Color Light-yellow (Yellow) Urine Clarity Clear (Clear) Urine pH 5.5 (5.0-9.0) Urine Specific [place] 1.029 (1.001-1.035) Urine Protein Negative (Negative) Urine Ketones Negative (Negative) Urine Blood Negative /uL (Negative) Urine Nitrite Negative (Negative) Urine Bilirubin Negative (Negative) Urine Urobilinogen 2 mg/dL (Negative) Urine Leukocyte Esterase 3+ /uL (Negative) Urine RBC 7 /hpf (0 - 4) Urine WBC 64 /hpf (0 - 5) Urine Squamous Epithelial Cells Few /hpf (<5) Urine Bacteria Few /hpf (None Seen) Urine Glucose Normal mg/dL (Normal) Other Laboratory Tests 07/02/24 03:20 Brief Hx & Hospital Course: Lois Guy is a 64 y old female with a PMH of HTN, type 2 DM, IBS, diverticulosis, depression planning to to the ED with the chief complaints of abdominal pain. Patient reported patient has been dealing with the stomach issues due to IBS for long-term but after eating turkey on patient has been worsening abdominal pain especially in the left lower quadrant, crampy in nature, 9/10 initially, cramping or burning in nature, no radiation, aggravated by eating but no specific relieving factors, associated with nausea, vomiting, diarrhea which is associated with a some blood, dizziness . On my assessment patient denies chest pain, fever, shortness of breath, diaphoresis, palpitations and other acute associated symptoms. Patient required hospital admission for further evaluation and management of abdominal pain. CT abdominal pelvis showed no acute abnormal findings. Patient was on NPO. Patient was given IVF, Rocephin and metronidazole and ordered stool culture along with stool occult blood. UA showed findings suggestive of UTI, ordered urine culture. Due to KATHRYN were continuously monitoring lab. Patient treatment was still in progress but patient wants to leave against medical advice. Patient is alert, oriented x4 despite explaining risks and benefits patient decided to leave AMA. Patient was encouraged to return ED if symptoms persist. Unable to complete physical examination as patient left against medical advice. Operations or Procedures CT abdominal pelvis WO contrast showed no acute abnormal findings. Condition at Discharge: Undetermined Final Diagnosis/Problems List # Abdominal pain likely due to colitis/gastroenteritis # Acute complicated UTI # KATHRYN likely due to VMN # hypertension # diabetes mellitus type 2 # irritable bowel syndrome # diverticulosis Discharge Disposition: AMA Discharge Statement: "Patient was advised to return to the ER or call 911 if any headaches, dizziness, shortness of breath, chest pain, abdominal pain, bleeding, fevers, or worsening of medical condition. Patient was counseled about treatment plan, medications, possible side effects, patientverbalized understanding. All questions were answered to the best of my ability. This discharge took greater then 30 minutes in planning, reviewing documentation, counseling the patient, and discussing with other team members." ASSESSMENT ASSESSMENT Assessment Date of Service: Jul 02, 2024 Billing Provider: PAOLO FIELDS MD Common Visit Codes: 96992-RAL/OBS DISCH DAY >30min ARIADNA HOSKINS RESIDENT Jul 02, 2024 15:55 PAOLO FIELDS MD Jul 07, 2024 19:09
[2024-07-03] MEDS ORDERED: cefTRIAXone 1GM/50ML D5W 50 ML IV SCH (02:00)
== END 2024-07-02 11:54 | disposition left against medical advice (07) | DRG 249 ==
LOC: ER 18:46 → OVERFLOW 22:09
PROVIDERS: ADMIT Internal Medicine Geriatric Medicine; ATTEND Internal Medicine Geriatric Medicine
DX: A08.4 Viral intestinal infection, unspecified (principal); N17.0 Acute kidney failure with tubular necrosis; E11.9 Type 2 diabetes mellitus without complications; K58.0 Irritable bowel syndrome with diarrhea; N39.0 Urinary tract infection, site not specified; I10 Essential (primary) hypertension; Z53.29 Procedure and treatment not carried out because of patient's decision for other reasons; Z90.710 Acquired absence of both cervix and uterus; Z79.4 Long term (current) use of insulin; Z79.899 Other long term (current) drug therapy
CPT/HCPCS: 36415; 71045; 74176; 80053; 81001; 82306; 82607; 82962; 83036; 83605; 83690; 83735; 84443; 84484; 85025; 87086; G0378; J2405; J2470; J3490